=== PATIENT | male | born 1970 | race Asian ===

== ENCOUNTER 2018-09-05 03:01 | Emergency (ER) | payer BC, OTHER ==
[~2018-09-05] VITALS: Ht 170.2 cm; Wt 100.0 kg
[2018-09-05] MEDS ORDERED: ATEN25TA PO (03:13)
[2018-09-05] MEDS ORDERED: ASPI-1182 PO (03:13)
[2018-09-05] MEDS ORDERED: LISI-660 PO (03:13)
[2018-09-05 03:46] LABS: BASOPHILS % (AUTO) 1.3 % (0.0-2.0); HEMATOCRIT 49.6 % (41-53); HEMOGLOBIN 17.2 g/dL (13.5-17.5); LYMPHOCYTES # (AUTO) 3.2 K/uL (1.0-4.8); LYMPHOCYTES % (AUTO) 38.6 % (22.0-44.0); MEAN CORPUSCULAR HEMOGLOBIN 31.7 pg (26.0-34.0); MEAN CORPUSCULAR HGB CONC 34.8 G/dL (31.0-37.0); MEAN CORPUSCULAR VOLUME 91 fL (80-100); MONOCYTES # (AUTO) 0.8 K/uL (0.1-1.0); NEUTROPHILS # (AUTO) 3.9 K/uL (1.8-7.7); NEUTROPHILS % (AUTO) 47.1 % (40.0-70.0); PLATELET COUNT (AUTO) 138 K/uL (150-450); RED BLOOD CELL COUNT(AUTO) 5.43 MIL/uL (4.50-5.90); RED CELL DISTRIBUTION WIDTH 14.1 % (11.5-14.5)
[2018-09-05 03:56] LABS: CALCIUM, TOTAL 8.2 mg/dL (8.8-10.5); CREATININE 1.47 mg/dL (0.60-1.30); POTASSIUM 3.2 mmol/L (3.5-5.1)
[2018-09-05 03:58] LABS: PROTHROMBIN TIME 10.1 SEC (9.4-11.6)
[2018-09-05] MEDS ORDERED: ATENOLOL 50 MG TABLET PO ONE (04:15)
[2018-09-05] MEDS ORDERED: KETOROLAC TROMETHAMINE 30 MG/ML VIAL IVP ONE (04:15)
[2018-09-05] MEDS ORDERED: CARISOPRODOL 350 MG TABLET PO ONE (04:15)
[2018-09-05 04:21] LABS: ALBUMIN 4.1 g/dL (3.4-5.0); BILIRUBIN,TOTAL 0.5 mg/dL (0.1-1.0); TOTAL PROTEIN, SERUM 8.3 g/dL (6.4-8.2)
[2018-09-05 04:23] LABS: APPEARANCE,URINE CLEAR (CLEAR); BILIRUBIN,URINE NEGATIVE (NEGATIVE); GLUCOSE, URINE (UA) 100 mg/dL (NEGATIVE); KETONES,URINE NEGATIVE (NEGATIVE); LEUKOCYTE ESTERASE ,URINE NEGATIVE (NEGATIVE); NITRATE,URINE NEGATIVE (NEGATIVE); OCCULT BLOOD,URINE NEGATIVE (NEGATIVE); PH,URINE 7.5 (5.0-8.0); PROTEIN,URINE POS 1+ (NEGATIVE); UROBILINOGEN,URINE 0.2 mg/dL (<=1.0)
[2018-09-05 04:29] LABS: BACTERIA,URINE None Seen /HPF (None Seen); SQUAMOUS EPITHELIAL CELL,UR None Seen /LPF (None Seen); WBC,URINE 0-2 /HPF (0-5)
[2018-09-05 04:30] LABS: RBC,URINE 0-2 /HPF (0-2)
[2018-09-05] MEDS ORDERED: SODIUM CHLORIDE 0.9% 1,000 ML IV ONE (05:30)
[2018-09-05 06:34] VITALS: BP 144/99
== END 2018-09-05 06:51 | disposition home or self-care (01) ==
LOC: EMS 03:01
DX: R51 Headache (principal); R42 Dizziness and giddiness; I10 Essential (primary) hypertension; E11.9 Type 2 diabetes mellitus without complications; Z79.82 Long term (current) use of aspirin; Z79.899 Other long term (current) drug therapy
CPT/HCPCS: 36415; 71045; 80053; 81001; 82550; 83880; 84484; 85025; 85610; 85730; 93005; 96361; 96374; 99285; J1885

== ENCOUNTER 2019-07-10 15:18 | Inpatient (IN) | payer OTHER ==
[~2019-07-10] VITALS: Ht 175.3 cm; Wt 101.2 kg
[~2019-07-10 15:18] MED LIST: ASPI-1182 PO; ATEN25TA PO; LISI-660 PO
[2019-07-10 15:31] LABS: GLUCOSE,POINT OF CARE 138 MG/DL (70-110)
[2019-07-10] MEDS ORDERED: HydrALAZINE HCL 20 MG/ML VIAL IVP ONE ×2 (15:45→17:30)
[2019-07-10] MEDS ORDERED: LORazepam 2 MG/ML VIAL IVP ONE (15:45)
[2019-07-10 16:14] LABS: BASOPHILS % (AUTO) 1.1 % (0.0-2.0); EOSINOPHILS % (AUTO) 1.3 % (1.0-6.0); HEMATOCRIT 48.8 % (41-53); HEMOGLOBIN 16.5 g/dL (13.5-17.5); LYMPHOCYTES # (AUTO) 3.2 K/uL (1.0-4.8); LYMPHOCYTES % (AUTO) 33.5 % (22.0-44.0); MEAN CORPUSCULAR HEMOGLOBIN 30.8 pg (26.0-34.0); MEAN CORPUSCULAR HGB CONC 33.8 G/dL (31.0-37.0); MEAN CORPUSCULAR VOLUME 91 fL (80-100); MONOCYTES # (AUTO) 0.7 K/uL (0.1-1.0); NEUTROPHILS # (AUTO) 5.4 K/uL (1.8-7.7); NEUTROPHILS % (AUTO) 57.1 % (40.0-70.0); PLATELET COUNT (AUTO) 161 K/uL (150-450); RED BLOOD CELL COUNT(AUTO) 5.36 MIL/uL (4.50-5.90)
[2019-07-10 16:22] LABS: POTASSIUM 3.1 mmol/L (3.5-5.1)
[2019-07-10 16:23] LABS: CALCIUM, TOTAL 9.1 mg/dL (8.8-10.5); CREATININE 1.33 mg/dL (0.60-1.30)
[2019-07-10 16:28] LABS: ALBUMIN 4.1 g/dL (3.4-5.0); BILIRUBIN,TOTAL 0.6 mg/dL (0.1-1.0); TOTAL PROTEIN, SERUM 8.3 g/dL (6.4-8.2)
[2019-07-10] MEDS ORDERED: POTASSIUM CHLORIDE 20 MEQ ER TABLET PO ONE (16:45)
[2019-07-10] MEDS ORDERED: MORPHINE SULFATE 4 MG/ML SYRINGE IVP ONE (17:30)
[2019-07-10] MEDS ORDERED: ONDANSETRON HCL 4 MG/2 ML VIAL IVP ONE (17:30)
[2019-07-10] MEDS ORDERED: ASPIRIN 81 MG CHEWABLE TABLET PO ONE (17:30)
[2019-07-10] MEDS ORDERED: HydrALAZINE HCL 20 MG/ML VIAL IVP PRN (18:30)
[2019-07-10] MEDS ORDERED: ZOLPIDEM TARTRATE 5 MG TABLET PO PRN (18:45)
[2019-07-10] MEDS ORDERED: BISACODYL 10 MG RECTAL RECTAL SUPPOSITORY PR PRN (18:45)
[2019-07-10] MEDS ORDERED: POTASSIUM CHLORIDE 20 MEQ ER TABLET PO PRN (18:45)
[2019-07-10] MEDS ORDERED: LORazepam 0.5 MG TABLET PO PRN (18:45)
[2019-07-10] MEDS ORDERED: POTASSIUM CHL 10 MEQ/WATER 50 ML IV PRN (18:45)
[2019-07-10] MEDS ORDERED: MAGNESIUM HYDROXIDE SUSPENSION 30 ML UDCUP PO PRN (18:45)
[2019-07-10] MEDS ORDERED: HYDROCODONE/ACETAMINOPHEN 5-325 MG TABLET PO PRN ×2 (18:45)
[2019-07-10] MEDS ORDERED: ONDANSETRON HCL 4 MG/2 ML VIAL IVP PRN (18:45)
[2019-07-10] MEDS ORDERED: HEPARIN SODIUM,PORCINE 5,000 UNITS/ML VIAL SQ SCH (18:45)
[2019-07-10] MEDS: HEPARIN SODIUM,PORCINE 5,000 UNITS/ML VIAL SQ SCH (20:04)
[2019-07-10 21:07] VITALS: BP 152/79
[2019-07-10] MEDS: LOSARTAN POTASSIUM 50 MG TABLET PO SCH (21:39)
[2019-07-10] MEDS: ACETAMINOPHEN 325 MG TABLET PO PRN (21:41)
[2019-07-10 23:47] VITALS: BP 145/76
[2019-07-11 02:06] LABS: GLUCOMETER DEV NAME(LOC) 5S.1; GLUCOSE,POINT OF CARE 159 MG/DL (70-110)
[2019-07-11 05:22] VITALS: BP 138/78
[2019-07-11 06:55] LABS: BASOPHILS % (AUTO) 0.6 % (0.0-2.0); EOSINOPHILS % (AUTO) 1.1 % (1.0-6.0); HEMATOCRIT 45.9 % (41-53); HEMOGLOBIN 15.7 g/dL (13.5-17.5); LYMPHOCYTES # (AUTO) 3.4 K/uL (1.0-4.8); LYMPHOCYTES % (AUTO) 28.1 % (22.0-44.0); MEAN CORPUSCULAR HEMOGLOBIN 31.2 pg (26.0-34.0); MEAN CORPUSCULAR HGB CONC 34.1 G/dL (31.0-37.0); MEAN CORPUSCULAR VOLUME 91 fL (80-100); MONOCYTES # (AUTO) 1.1 K/uL (0.1-1.0); MONOCYTES % (AUTO) 9.2 % (2.0-9.0); NEUTROPHILS # (AUTO) 7.4 K/uL (1.8-7.7); PLATELET COUNT (AUTO) 154 K/uL (150-450); RED BLOOD CELL COUNT(AUTO) 5.02 MIL/uL (4.50-5.90); RED CELL DISTRIBUTION WIDTH 14.3 % (11.5-14.5)
[2019-07-11 07:06] VITALS: BP 144/77
[2019-07-11 07:07] LABS: HEMOGLOBIN A1C 6.4 % (4.5-6.2)
[2019-07-11 07:37] LABS: CALCIUM, TOTAL 8.9 mg/dL (8.8-10.5); CHOL/HDL RATIO 5.4 (4.2-7.3); CREATININE 1.28 mg/dL (0.60-1.30); FREE T4 (FREE THYROXINE) 1.14 ng/dL (0.76-1.46); MAGNESIUM 2.2 mg/dL (1.80-2.40); THYROID STIMULATING HORMONE 1.26 uIU/mL (0.36-3.74)
[2019-07-11 07:39] LABS: POTASSIUM 2.7 mmol/L (3.5-5.1)
[2019-07-11] MEDS ORDERED: SODIUM CHLORIDE 0.9% 250 ML IV ONE (08:54)
[2019-07-11] MEDS: AmLODIPine BESYLATE 5 MG TABLET PO SCH (09:00)
[2019-07-11] MEDS ORDERED: METOPROLOL TARTRATE 50 MG TABLET PO SCH (09:00)
[2019-07-11] MEDS: PANTOPRAZOLE SODIUM 40 MG DR TABLET PO SCH (09:09)
[2019-07-11] MEDS: LOSARTAN POTASSIUM 50 MG TABLET PO SCH (09:09)
[2019-07-11] MEDS: ASPIRIN 81 MG EC TABLET PO SCH (09:10)
[2019-07-11] MEDS: HEPARIN SODIUM,PORCINE 5,000 UNITS/ML VIAL SQ SCH ×2 (09:10→21:30)
[2019-07-11 10:48] VITALS: BP 176/96
[2019-07-11] MEDS ORDERED: DEXTROSE 50%-WATER 25 GM/50 ML SYRINGE IVP PRN (11:15)
[2019-07-11] MEDS: POTASSIUM CHLORIDE 20 MEQ ER TABLET PO SCH ×2 (12:21→20:56)
[2019-07-11] MEDS: HYDROCHLOROTHIAZIDE 25 MG TABLET PO SCH (12:23)
[2019-07-11] MEDS: INSULIN LISPRO 100 UNITS/ML SQ PRN ×2 (12:31→17:37)
[2019-07-11 13:55] LABS: GLUCOMETER DEV NAME(LOC) 5S.1; GLUCOSE,POINT OF CARE 177 MG/DL (70-110)
[2019-07-11 15:25] VITALS: BP 156/80
[2019-07-11] MEDS: ACETAMINOPHEN 325 MG TABLET PO PRN (17:34)
[2019-07-11] MEDS: MetFORMIN HCL 500 MG TABLET PO SCH (17:34)
[2019-07-11 19:42] VITALS: BP 160/91
[2019-07-11] MEDS: CARVEDILOL 25 MG TABLET PO SCH (20:56)
[2019-07-11] MEDS: ROSUVASTATIN CALCIUM 10 MG TABLET PO SCH (21:00)
[2019-07-11 23:41] VITALS: BP 160/90
[2019-07-12 04:46] VITALS: BP 154/92
[2019-07-12] MEDS: INSULIN LISPRO 100 UNITS/ML SQ PRN (05:53)
[2019-07-12 06:28] LABS: BASOPHILS % (AUTO) 0.9 % (0.0-2.0); EOSINOPHILS % (AUTO) 2.4 % (1.0-6.0); HEMATOCRIT 45.6 % (41-53); HEMOGLOBIN 15.6 g/dL (13.5-17.5); LYMPHOCYTES # (AUTO) 3.7 K/uL (1.0-4.8); LYMPHOCYTES % (AUTO) 41.8 % (22.0-44.0); MEAN CORPUSCULAR HEMOGLOBIN 31.4 pg (26.0-34.0); MEAN CORPUSCULAR HGB CONC 34.2 G/dL (31.0-37.0); MEAN CORPUSCULAR VOLUME 92 fL (80-100); MONOCYTES # (AUTO) 0.9 K/uL (0.1-1.0); NEUTROPHILS # (AUTO) 3.9 K/uL (1.8-7.7); NEUTROPHILS % (AUTO) 44.9 % (40.0-70.0); PLATELET COUNT (AUTO) 152 K/uL (150-450); RED BLOOD CELL COUNT(AUTO) 4.97 MIL/uL (4.50-5.90); RED CELL DISTRIBUTION WIDTH 14.4 % (11.5-14.5)
[2019-07-12 06:37] LABS: CALCIUM, TOTAL 8.9 mg/dL (8.8-10.5); CREATININE 1.48 mg/dL (0.60-1.30); POTASSIUM 3.2 mmol/L (3.5-5.1)
[2019-07-12 07:34] VITALS: BP 184/97
[2019-07-12] MEDS: HYDROCHLOROTHIAZIDE 25 MG TABLET PO SCH (08:31)
[2019-07-12] MEDS: LOSARTAN POTASSIUM 50 MG TABLET PO SCH (08:32)
[2019-07-12] MEDS: CARVEDILOL 25 MG TABLET PO SCH ×2 (08:32→20:55)
[2019-07-12] MEDS: PANTOPRAZOLE SODIUM 40 MG DR TABLET PO SCH (08:32)
[2019-07-12] MEDS: MetFORMIN HCL 500 MG TABLET PO SCH ×2 (08:32→17:52)
[2019-07-12] MEDS: ASPIRIN 81 MG EC TABLET PO SCH (08:32)
[2019-07-12] MEDS: HEPARIN SODIUM,PORCINE 5,000 UNITS/ML VIAL SQ SCH ×2 (08:32→20:59)
[2019-07-12] MEDS: POTASSIUM CHLORIDE 20 MEQ ER TABLET PO SCH (08:32)
[2019-07-12] MEDS: AmLODIPine BESYLATE 5 MG TABLET PO SCH (08:32)
[2019-07-12 10:46] LABS: GLUCOMETER DEV NAME(LOC) 5N.1; GLUCOSE,POINT OF CARE 110 MG/DL (70-110)
[2019-07-12 11:24] VITALS: BP 150/84
[2019-07-12 11:46] LABS: GLUCOMETER DEV NAME(LOC) 5S.1; GLUCOSE,POINT OF CARE 166 MG/DL (70-110)
[2019-07-12] MEDS: ISOSORBIDE MONONITRATE 30 MG ER TABLET PO SCH (12:17)
[2019-07-12 15:25] VITALS: BP 144/87
[2019-07-12] MEDS: ACETAMINOPHEN 325 MG TABLET PO PRN (16:14)
[2019-07-12 20:41] LABS: GLUCOMETER DEV NAME(LOC) 5S.2A; GLUCOSE,POINT OF CARE 140 MG/DL (70-110)
[2019-07-12 20:41] LABS: GLUCOMETER DEV NAME(LOC) 5S.2A; GLUCOSE,POINT OF CARE 110 MG/DL (70-110)
[2019-07-12] MEDS: ROSUVASTATIN CALCIUM 10 MG TABLET PO SCH (20:55)
[2019-07-12 21:06] VITALS: BP 141/77
[2019-07-13 00:11] LABS: GLUCOMETER DEV NAME(LOC) 5N.2; GLUCOSE,POINT OF CARE 149 MG/DL (70-110)
[2019-07-13 02:10] LABS: COLLECTION TIME,URINE 24 HR
[2019-07-13 02:11] LABS: COLLECTION TIME,URINE 24 HR
[2019-07-13 02:12] LABS: CREATININE,SERUM FOR CRCL 1.48 mg/dL (0.60-1.30)
[2019-07-13 02:30] LABS: CREATININE,URINE 142.8 mg/dL (30.0-125.0)
[2019-07-13 02:31] LABS: SODIUM TIMED,URINE 40 mmol/L (20-110); SODIUM URINE, 24HR CALC 28 mmol/24H (40-220); TPROTEIN TIMED,URINE 46 mg/dL; TPROTEIN URINE, 24HRS COLL 322 mg/24Hr (0-165); UREA NITROGEN URINE,24HR CALC 6139 mg/24H (7000-20000); URINE UREA NITROGEN, TIMED 877 mg/dL (350-1000)
[2019-07-13 05:16] VITALS: BP 141/82
[2019-07-13 07:20] VITALS: BP 144/74
[2019-07-13] MEDS: CARVEDILOL 25 MG TABLET PO SCH (08:35)
[2019-07-13] MEDS: HYDROCHLOROTHIAZIDE 25 MG TABLET PO SCH (08:35)
[2019-07-13] MEDS: MetFORMIN HCL 500 MG TABLET PO SCH (08:35)
[2019-07-13] MEDS: LOSARTAN POTASSIUM 50 MG TABLET PO SCH (08:35)
[2019-07-13] MEDS: ASPIRIN 81 MG EC TABLET PO SCH (08:35)
[2019-07-13] MEDS: ISOSORBIDE MONONITRATE 30 MG ER TABLET PO SCH (08:35)
[2019-07-13] MEDS: PANTOPRAZOLE SODIUM 40 MG DR TABLET PO SCH (08:35)
[2019-07-13] MEDS: HEPARIN SODIUM,PORCINE 5,000 UNITS/ML VIAL SQ SCH (08:36)
[2019-07-13] MEDS: AmLODIPine BESYLATE 5 MG TABLET PO SCH (08:36)
[2019-07-13 08:52] LABS: BASOPHILS % (AUTO) 0.9 % (0.0-2.0); EOSINOPHILS % (AUTO) 1.4 % (1.0-6.0); HEMATOCRIT 44.9 % (41-53); HEMOGLOBIN 15.4 g/dL (13.5-17.5); LYMPHOCYTES % (AUTO) 27.3 % (22.0-44.0); MEAN CORPUSCULAR HEMOGLOBIN 31.3 pg (26.0-34.0); MEAN CORPUSCULAR HGB CONC 34.3 G/dL (31.0-37.0); MEAN CORPUSCULAR VOLUME 91 fL (80-100); MONOCYTES % (AUTO) 9.1 % (2.0-9.0); NEUTROPHILS # (AUTO) 6.7 K/uL (1.8-7.7); NEUTROPHILS % (AUTO) 61.3 % (40.0-70.0); PLATELET COUNT (AUTO) 152 K/uL (150-450); RED BLOOD CELL COUNT(AUTO) 4.92 MIL/uL (4.50-5.90); RED CELL DISTRIBUTION WIDTH 14.1 % (11.5-14.5)
[2019-07-13] MEDS ORDERED: POTASSIUM CHLORIDE 20 MEQ ER TABLET PO SCH (09:00)
[2019-07-13 09:16] LABS: CALCIUM, TOTAL 8.6 mg/dL (8.8-10.5); CREATININE 1.32 mg/dL (0.60-1.30); POTASSIUM 3.4 mmol/L (3.5-5.1)
[2019-07-13 10:51] VITALS: BP 135/78
[2019-07-13 11:00] LABS: GLUCOMETER DEV NAME(LOC) 5S.1; GLUCOSE,POINT OF CARE 102 MG/DL (70-110)
[2019-07-13] MEDS ORDERED: KDUR20 PO (11:06)
[2019-07-13] MEDS ORDERED: CARV25 PO (11:07)
[2019-07-13] MEDS ORDERED: AMLO5TAB9 PO (11:07)
[2019-07-13] MEDS ORDERED: LOSA1TAB7 PO (11:08)
[2019-07-13] MEDS ORDERED: ISOS30TA6 PO (11:08)
[2019-07-13] MEDS ORDERED: METF-960 PO (11:09)
[2019-07-13] MEDS ORDERED: ROSU10TA22 PO (11:09)
== END 2019-07-13 12:20 | disposition home or self-care (01) | DRG 305 ==
LOC: EMS 15:22 → 5S 17:52
PROVIDERS: ADMIT Internal Medicine Geriatric Medicine; ATTEND Internal Medicine Geriatric Medicine
DX: I16.0 Hypertensive urgency (principal); E11.22 Type 2 diabetes mellitus with diabetic chronic kidney disease; E78.5 Hyperlipidemia, unspecified; E87.6 Hypokalemia; I35.1 Nonrheumatic aortic (valve) insufficiency; N18.3 Chronic kidney disease, stage 3 (moderate); D35.00 Benign neoplasm of unspecified adrenal gland; E26.9 Hyperaldosteronism, unspecified; I13.10 Hypertensive heart and chronic kidney disease without heart failure, with stage 1 through stage 4 chronic kidney disease, or unspecified chronic kidney disease; F41.9 Anxiety disorder, unspecified; T44.7X5A Adverse effect of beta-adrenoreceptor antagonists, initial encounter; I44.0 Atrioventricular block, first degree; Z79.82 Long term (current) use of aspirin; Z79.899 Other long term (current) drug therapy; Z83.3 Family history of diabetes mellitus; Z86.73 Personal history of transient ischemic attack (TIA), and cerebral infarction without residual deficits; Z91.19 Patient's noncompliance with other medical treatment and regimen; Z87.891 Personal history of nicotine dependence; Y92.89 Other specified places as the place of occurrence of the external cause
CPT/HCPCS: 70450; 76770; 81050; 82088; 82570; 82575; 83036; 83150; 83735; 83835; 83970; 84156; 84244; 84300; 84439; 84443; 84540; 84585; 93005; 93306; 96374; 96375; 96376; 99291; G0378; J0360; J1644; J2060; J2270; J2405; J7050